=== PATIENT | female | born 1980 | race Caucasian/White ===

== ENCOUNTER 2023-10-03 04:50 | Day surgery (SDC) | payer BC ==
[2023-09-28 09:54] VITALS: BMI 29.2
[2023-10-03] MEDS ORDERED: PROPOFOL 20 ML ONE (09:08)
[2023-10-03] MEDS ORDERED: LIDOCAINE HCL/PF 2% SDV 5ML VIAL ONE (09:08)
[2023-10-03] MEDS ORDERED: MIDAZOLAM HCL 2 MG/2 ML SINGLE DOSE VIAL ONE (09:09)
[2023-10-03] MEDS ORDERED: IBUPROFEN 600 MG TABLET (FP) PO PRN (10:01)
[2023-10-03] MEDS ORDERED: ONDANSETRON 4 MG/2 ML VIAL IVPUSH PRN (10:01)
[2023-10-03] MEDS ORDERED: oxyCODONE HCL 5 MG TABLET PO PRN ×3 (10:01→11:16)
[2023-10-03] MEDS ORDERED: IBUPROFEN 800 MG/8 ML IJ IVPB PRN (10:01)
[2023-10-03] MEDS ORDERED: ELECTROLYTE-148 SOLN 1,000 ML IV SCH (10:15)
[2023-10-03] MEDS ORDERED: ONDANSETRON 4 MG/2 ML VIAL ONE (10:32)
[2023-10-03] MEDS ORDERED: DEXAMETHASONE SOD PHOSPHATE 4 MG/1 ML VIAL ONE (10:32)
[2023-10-03] MEDS ORDERED: KETOROLAC TROMETHAMINE 30 MG/1 ML VIAL ONE (10:32)
[2023-10-03] MEDS ORDERED: ACETAMINOPHEN 1000 MG/100 ML BAG IVPB ONE ×2 (11:16→11:35)
[2023-10-03] MEDS ORDERED: PROMETHAZINE HCL 25 MG/1 ML VIAL IVPB PRN (11:16)
[2023-10-03] MEDS ORDERED: LACTATED RINGERS SOLUTION 1,000 ML IV SCH (11:30)
[2023-10-03] MEDS ORDERED: ACETAMINOPHEN INJECTION 100 ML IVPB ONE (11:36)
[2023-10-03 12:39] VITALS: TEMP 97.3
[2023-10-03 12:47] VITALS: RESP 20
[2023-10-03 13:41] VITALS: BP 123/65; PULSE 68
== END 2023-10-03 13:35 | disposition home or self-care (01) ==
LOC: JASU-SURG 04:50
PROVIDERS: ATTEND Obstetrics & Gynecology
PROC: 0UB98ZZ Excision of Uterus, Via Natural or Artificial Opening Endoscopic (ICD-10-PCS; principal; 2023-10-03 09:30)
DX: N84.0 Polyp of corpus uteri (principal)
CPT/HCPCS: 81025; 88305-TC; 94760